=== PATIENT | female | born 1980 | race Caucasian/White ===

== ENCOUNTER → 2016-11-29 | Day surgery (SDC) | payer OTHER ==
--- NOTE | 2016-11-28 18:02 | GHP ---
[f rep st] PREOP HISTORY AND PHYSICAL DATE OF ADMISSION: 11/29/2016 SCHEDULED DATE OF SURGERY: Tomorrow 11/29/2016 at 7:30 a.m. SURGERY TO BE PERFORMED: Suction dilation curettage. PREOPERATIVE DIAGNOSIS: Missed . HISTORY OF PRESENT ILLNESS: Patient is a 36-year-old, 2, para 1-0-1, with a last menstrual period of 09/22/2016 and a presumed EDC of 06/29/2017. Patient was seen at [facility] on 11/28/2016 for her new OB visit. She had recently moved from [place]. Early in , she h ad an ultrasound at 6 weeks that demonstrated a positive pole with heart tones of 99 giv en an EDC of 07/03/2017 and patient had had no bleeding or spotting or any symptoms and an ultrasoun d repeated today at her new OB visit revealed a gestational sac with yolk sac, a very small po le with no heart tones and the diagnosis of missed was made. We carefully reviewed t reatment options and risks and benefits of all procedures, expectant management versus medical manag ement, versus suction dilation curettage. Patient would rather have definitive management with the s uction curettage and she was scheduled and consented for this. PAST OBSTETRICAL HISTORY: In May of 2014, she had a viable male who weighed 8 pounds, 9 ounces . This was a scheduled due to presumed macrosomia and enlarged abdominal circumference an d this is her 2nd . PAST GYNECOLOGICAL HISTORY: She had a normal menstrual triad with menarche at age 14. Cycles every 28 days, lasting 5 days. They had been trying to get with this baby for 6 months. She do es have a history of abnormal Paps. She had SELVIN 2-3 and was treated with a LEEP in 2009. Her Paps have been negative since. She does not have any history of any other STDs or any other gynecologica l issues. PAST MEDICAL HISTORY: None. SURGICAL HISTORY: Includes a cervical LEEP as well as the and had a tonsillectomy in 2000 . ALLERGIES: Penicillin, amoxicillin and Augmentin. They cause shortness of breath. MEDICATIONS: Include vitamins with DHA. She is Rh negative. Had RhoGAM with G1. That is all her medical history. SOCIAL HISTORY: She is . She lives with her and her son and she denies tobacco, alc ohol, and drug use since the . She and her are from [place]. They have [place] [facility] [place] 5 years. She is not currently working. She is home with her son. FAMILY HISTORY: Paternal grandfather had a myocardial infarction and clots. Cousin has asthma. Ma ternal grandfather had adult onset diabetes. Mother has GERD. Maternal aunt had breast cancer and lymphoma. Maternal grandmother had strokes, and osteoarthritis and that is all that is significant. REVIEW OF SYSTEMS: Negative today. She has mild nausea from the , no vomiting. She has n o cardiovascular, respiratory, GI, , integument or psychological problems today. PHYSICAL EXAMINATION: VITAL SIGNS: She is afebrile. Vital signs are stable. GENERAL: She is well-developed, well-nourished female, in no acute distress. She is visibly upset by the diagnosis of the miscarriage. LUNGS: Clear to auscultation bilaterally. HEART: Regular rat e and rhythm. No murmurs. ABDOMEN: Soft, nontender, nondistended. Normal bowel sounds. PELVIC: Normal external genitalia. Normal nulliparous cervix. Uterus is anteverted, anteflexed, approxima tely 6 week size. No masses. Nontender. Ultrasound results are as above, abnormally shaped gestational sac and yolk sac. No visible p ole and no heart tones. ASSESSMENT AND PLAN: 36-year-old, 2, para 1-0-1, who is 9-4/7th weeks by dates, measuring 6 weeks by size with a missed . Patient was consented for the procedure today. She understo od the risks and benefits. The risks including bleeding, infection, damage to the uterus, possible risk of damage to other organs if perforation were to occur, risk of needing additional procedures o r spontaneous expulsion of tissue at a later time, and compromise of future fertility. Patient unde rstood these risks and benefits and agreed to proceed. /[id number]/MODL
[~2016-11-29] MED LIST: DEXAMETHASONE 4 MG/ML VIAL ONE; DOXYCYCLINE INJ 100 MG in D5W 250 ML IV ONE; HEMABATE 250 MCG/1 ML AMP IM ONE; HYDROCODONE/APAP 5/325 TAB PO PRN; KETOROLAC 30 MG/1 ML SDV ONE; LIDOCAINE 2% 5 ML SDV ONE; LR 1,000 ML IV ONE; METHYLERGONOVINE MAL 0.2 MG/ML INJ ONE; MIDAZOLAM 2 MG/2 ML VIAL ONE; MISOPROSTOL 200 MCG TAB ONE; ONDANSETRON 4 MG/2 ML VIAL ONE; PROPOFOL/EMULSION 500 MG/50 ML BOTTLE IV ONE; fentaNYL 100 MCG/2 ML INJ ONE
[2016-11-29 07:36] LABS: % IMMATURE GRANULYOCYTES 0.7 % (0.0-1.1); ABSOLUTE IMMATURE GRANULOCYTES 0.04 10^3/uL (0.00-0.10); ADD DIFF? NO; ADD MORPH? NO; ADD SCAN? NO; ATYPICAL LYMPHOCYTE FLAG 10 (0-99); FRAGMENT RBC FLAG 0 (0-99); HEMATOCRIT 35.6 % (38.0-47.0); HEMOGLOBIN 12.1 g/dL (12.6-16.3); LEFT SHIFT FLG 0 (0-99); LIPEMIA HEMOLYSIS FLAG 90 (0-99); MEAN CELL HEMOGLOBIN 30.4 pg (27.9-34.1); MEAN CELL VOLUME 89.4 fL (81.5-99.8); MEAN PLATELET VOLUME 10.1 fL (8.7-11.7); PLATELET CLUMPS FLAG 0 (0-99); PLATELET COUNT 209 10^3/uL (150-400); RED BLOOD CELL COUNT 3.98 10^6/uL (4.18-5.33); RED CELL DISTRIBUTION WIDTH 12.8 % (11.5-15.2)
--- NOTE | 2016-11-29 12:25 | GOP ---
[f rep st] OPERATIVE REPORT DATE OF OPERATION: 11/29/2016 SURGEON: Lizz Shane MD ANESTHESIA: General anesthesia. ANESTHESIOLOGIST: Chance Cavanaugh MD. PREOPERATIVE DIAGNOSIS: Missed , 6 weeks by size, 9 weeks by date. POSTOPERATIVE DIAGNOSIS: Missed , 6 weeks by size, 9 weeks by date. PROCEDURE PERFORMED: Suction dilation, curettage with ultrasound guidance. FINDINGS: SPECIMENS: Will be products of conception. ESTIMATED BLOOD LOSS: For the procedure was 50 cc. INDICATIONS: Sosa is a 36-year-old, 2, para 1-0-0-1, with a last menstrual period of 09/22 and a presumed EDC of 06/29/2017. Patient was first presented to [facility] on 11/08 for her new OB visit. She had recently moved from [place]. At a clinic in [place], jean-paul babb had an ultrasound that dated her 6 weeks with a slow heart beat at 99 beats per minute. Santhosh t was approximately 3 weeks ago. Ultrasound at [facility] revealed a gestational sac with a yolk sac, very small pole, no heart tones. Diagnosis of missed was made. P blessing was given treatment options of expectant management versus medical management versus surgical management with suction D and C. Patient desired a suction D and C. she was consented for the pro cedure. She understood the risks and benefits. The risks including bleeding, infection, damage to the uterus including possible risk of perforation, damage to other organs if perforation were to occ ur, the risk of injury to other organs, risk of incomplete removal of all the tissue, need for addit ional procedures, or compromise of future fertility. She understood these risks and benefits, agree d to proceed. DESCRIPTION OF PROCEDURE: Patient was taken to the operating room where she was placed under genera l anesthesia without difficulty. She was prepped and draped in the dorsal lithotomy position. Afte r a WHO time-out was performed, an open-sided speculum was placed in the vagina, and a Mario winchester um was used to grasp the anterior lip of the cervix. The uterus sounded to 9 cm. The cervix was th en progressively dilated with Nava dilators to a #8. A #8 curved suction curette was gently advanc ed from the cervix to the fundus, and suction was applied. Tissue was removed with several passages of the suction device. The uterus was at an extremely retroflexed angle, and under palpation, I pe rformed a vaginal ultrasound and realized that the bladder was full, so I catheterized the patient. She had 250 cc of urine in her bladder. A speculum was then reapplied. The tenaculum was reapplie d. Sharp curettage was performed in a clockwise fashion until a gritty texture was palpated through out the entire uterus. Final passes of suction device revealed no further tissue and good hemostasi s. Ultrasound again performed at the bedside revealed a thin endometrial stripe, no retained produc ts of conception. Tenaculum was removed. There was no bleeding from the tenaculum sites. Uterus w as hemostatic. The patient tolerated the procedure well. Sponge, lap, needle, and instrument count s were correct x2. Patient went to the recovery room in good condition. URINE OUTPUT: 250 cc. INTRAVENOUS FLUIDS: 1500. /[id number]/MODL
== END | disposition home or self-care (01) ==
LOC: FOBOP 05:38
PROVIDERS: ATTEND Obstetrics & Gynecology
PROC: 10D17ZZ Extraction of Products of Conception, Retained, Via Natural or Artificial Opening (ICD-10-PCS; principal; 2016-11-29)
DX: O02.1 Missed abortion (principal); Z88.0 Allergy status to penicillin
CPT/HCPCS: J1100; J1885; J2210; J2250; J2405; J2704; J3010

== ENCOUNTER → 2017-04-20 | Outpatient (CLI) | payer BC | LOC: FIMAGING 10:10 | PROVIDERS: ATTEND Obstetrics & Gynecology | DX: O09.522 Supervision of elderly multigravida, second trimester (principal); O34.219 Maternal care for unspecified type scar from previous cesarean delivery; Z3A.12 12 weeks gestation of pregnancy; Z87.42 Personal history of other diseases of the female genital tract ==

== ENCOUNTER 2017-06-01 14:29 | Emergency (ER) | payer BC ==
[2017-06-01 14:42] VITALS: BP 111/86; PULSE 90; RESP 18; TEMP 98.1; O2SAT 96
[2017-06-01] MEDS ORDERED: FLUORESCEIN SODIUM 1 MG STRIP OP ONE (14:58)
[2017-06-01] MEDS ORDERED: PROPARACAINE 0.5% 15 ML OPHT DROP ONE (14:58)
--- NOTE | 2017-06-01 15:19 | EDPHY ---
H & P Time Seen by Provider: 06/01/17 15:03 HPI/ROS: CHIEF COMPLAINT: Eye redness HISTORY OF PRESENT ILLNESS: Patient had some water splashed in her eye on Monday and then thought she might have gotten poked by her toddler. She has some inflammation and irritation on the medial side of the right eye along with some redness over the past 48 hours. She does not have any decrease in visual acuity, no drainage, no fever or chills, no lid swelling or pain with extraocular motion. REVIEW OF SYSTEMS: As above PAST MEDICAL HISTORY: Sarcoid, , sciatica Social history: Saw her primary care physician on Monday and has a follow- up ophthalmology appointment on Monday. General Appearance: Alert, no distress. Visual acuity: noted from nursing notes. Lids and Lashes: No edema, no stye, no erythema. Conjunctivae: Not injected, no exudate. Sclera: medial right side subconjunctival hemorrhage with no scleral injection. 1mm slight raised area medially, slightly yellow in color. Pupils: Equal and round, normally reactive. Corneas: Right examined with fluoroscein, no uptake seen with slitlamp.Negative Trent test with fluoroscein. No foreign body on surface of cornea. Anterior chamber: normal, no hyphema or hypopyon. External: No proptosis, no periorbital swelling or redness or tenderness. Emergency Department course/MDM: Patient has probable very mild right subconjunctival hemorrhage without evidence of a threat to eyesight or acute infection. Symptomatic treatment and ophthalmology follow-up as scheduled on Monday. Warned to return immediately for discharge or increasing pain or any decrease in vision. Smoking Status: Never smoked Constitutional: Initial Vital Signs Temperature (C) 36.7 C 06/01/17 14:39 Heart Rate 90 06/01/17 14:39 Respiratory Rate 18 06/01/17 14:39 Blood Pressure 111/86 H 06/01/17 14:39 O2 Sat (%) 96 06/01/17 14:39 O2 Delivery Mode Room Air Allergies/Adverse Reactions: amoxicillin Allergy (Verified 06/01/17 14:38) Penicillins Allergy (Verified 06/01/17 14:38) Home Medications: Medication Instructions Recorded 06/01/17 MDM/Departure - Depart Disposition: Home, Routine, Self-Care Clinical Impression: Subconjunctival hemorrhage of right eye Condition: Good Instructions: Subconjunctival Hemorrhage (ED) Referrals: Nallely Healy MD [Medical Doctor] - As per Instructions
== END 2017-06-01 15:22 | disposition home or self-care (01) ==
DX: O99.89 Other specified diseases and conditions complicating pregnancy, childbirth and the puerperium (principal); H11.31 Conjunctival hemorrhage, right eye; Z3A.18 18 weeks gestation of pregnancy

== ENCOUNTER → 2017-06-08 | Outpatient (CLI) | payer BC | LOC: FIMAGING 09:23 | PROVIDERS: ATTEND Obstetrics & Gynecology | DX: O09.512 Supervision of elderly primigravida, second trimester (principal); O34.219 Maternal care for unspecified type scar from previous cesarean delivery; Z3A.19 19 weeks gestation of pregnancy ==

== ENCOUNTER 2017-10-27 05:03 | Inpatient (IN) | payer BC ==
--- NOTE | 2017-10-16 10:20 | GHP ---
[f rep st] PREOP HISTORY AND PHYSICAL DATE OF ADMISSION: 10/27/2017 DATE OF SURGERY: 10/27/2017. PROCEDURE TO BE PERFORMED: Repeat lower transverse section at 39 weeks gestation. HISTORY OF PRESENT ILLNESS: The patient is a 37-year-old 3, para 1-0-1-1, with a last menstr ual period of 01/26/2017, and an EDC of 11/04/2017, confirmed by a 6 and 8-week ultrasound. She has had good care at [facility] since registration at 8 weeks' gestation and has had a relatively uncomplicated course. She is advanced maternal age. She has had normal verify, normal AFP and normal ultrasounds in this . She is Rh negative, status post RhoGAM. She h as a history of with G1 secondary to suspected macrosomia. She was not offered a trial of labor with that . She delivered in [place], that baby weighed 8 pounds 9 ounces. This b emily is also suspected to be macrosomic. The most recent ultrasound performed at 32 weeks gestation b emily was 96th percentile greater than 98th percentile for by parietal diameter and head circumference, 91st percentile for abdominal circumference and she is GBS positive. The patient has had delivery o ptions discussed. Repeat section versus attempted vaginal after section june use of concerns about this baby's size and concerns about risks of . Patient declines a trial of labor and is more comfortable with a repeat section. PAST OBSTETRICAL HISTORY: In May 2014 she delivered a viable male, 8 pounds 9 ounces by primary elective . In November of 2016 she had a D and C secondary to missed at 9 weeks and th is is her 3rd . PAST GYNECOLOGICAL HISTORY: She has a normal menstrual triad. Menarche at age 14. Interval every 2 8 days. Length of 5 days and regular. Last menstrual period of 01/26/2017, and this was a planned after her miscarriage. She has a history of abnormal Paps with a LEEP performed in 2005 secondary to SELVIN 2. She has had negative Pap since and a negative Pap in this in 2016. No other history of any STDs. They did need to use a vacuum to get the baby out during the . PAST SURGICAL HISTORY: 2013, D and C in 2017 and tonsillectomy in 2000. She does have a history of sarcoidosis at age 23. It affected her eyes and her neck, treated with an tibiotics and in this she also had an ophthalmologic rash that inflammation and she had an episode of elevated C-reactive protein and elevated creatinine. PIH labs were normal. Re peat labs were improved and the rash improved spontaneously with drops for medicine. She will be fol lowed by ordinary seaman . ALLERGIES: She is allergic to penicillin, amoxicillin, Augmentin, they all cause shortness of breath . MEDICATIONS: Include vitaPearl vitamin. She was on Prometrium in 1st trimester. LABORATORY DATA: She is O negative, antibody negative. RPR nonreactive. Rubella immune. Hepatitis negative. HIV negative. Verify normal. Standard panel normal. AFP normal. Gonorrhea and chlamyd ia negative. 1-hour GTT 94. GBS positive. SOCIAL HISTORY: She is . She lives with her , Huber, and her son, Huber. She is a [id number] mom. They are from [place]. They have moved here recently. She denies tobacco, alco hol, and drug use in this . FAMILY HISTORY: Significant for paternal grandfather with myocardial infarction, chronic hypertensio n. Mother with acid reflux. Cousin and maternal grandfather with adult onset diabetes. Maternal au nt with double mastectomy for breast cancer. Mom and maternal grandmother with osteoarthritis and ma ternal grandmother had a stroke. REVIEW OF SYSTEMS: Negative except for symptoms normal as above. OBJECTIVE: VITAL SIGNS: Today she is afebrile, blood pressure is 132/64, weight is 198, which is a 26 pound weight gain in this . GENERAL: She is a well-developed, well-nourished gravid whi te female in no acute distress. LUNGS: Clear to auscultation bilaterally. HEART: Regular rate and rhythm, no murmur. ABDOMEN: Gravid. Fundal height is 39. heart tones 158. PELVIS: Exam w as closed and 50% last week. ASSESSMENT AND PLAN: 37-year-old 3, para 1-0-1-1, who will be 39 and 1/7 weeks gestation on October 27, who desires a repeat lower transverse section. Patient was consented for the pr ocedure. She understood the risks and benefits, the risks including bleeding, infection, damage to i nternal organs, uterus, tubes, ovaries, bowel, bladder, nerves, blood vessels, ureters, risk of injury, risk of hemorrhage requiring blood transfusion, hysterectomy, or . She understood thes e risks and benefits and agreed to proceed. /[id number]/MODL
[2017-10-27] MEDS ORDERED: CITRIC ACID/SODIUM CITRATE 30 ML UDCUP PO ONE (05:13)
[2017-10-27] MEDS ORDERED: LR 500 ML IV ONE (05:13)
[2017-10-27] MEDS ORDERED: CLINDAMYCIN 900 MG/DEXTROSE 50 ML IV ONE (05:13)
[2017-10-27 06:21] LABS: PLATELET COUNT 206 10^3/uL (150-400)
[2017-10-27] MEDS ORDERED: OXYTOCIN 10 UNIT/ML VIAL ONE (06:55)
[2017-10-27] MEDS ORDERED: MISOPROSTOL 200 MCG TAB ONE (06:55)
[2017-10-27] MEDS ORDERED: fentaNYL 100 MCG/2 ML INJ ONE (07:03)
[2017-10-27] MEDS ORDERED: morphINE PF 5 MG/10 ML INJ ONE (07:04)
[2017-10-27] MEDS: LR 1,000 ML IV SCH ×2 (07:06→16:59)
[2017-10-27] MEDS ORDERED: OXYTOCIN 100 UNITS/10 ML VIAL ONE (07:09)
[2017-10-27] MEDS ORDERED: BUPIVACAINE/DEXTROSE 7.5MG/ML 2 ML SPINAL AMP SP ONE (07:09)
[2017-10-27] MEDS ORDERED: ONDANSETRON 4 MG/2 ML VIAL ONE (07:09)
[2017-10-27] MEDS ORDERED: PHENYLEPHRINE 10 MG/ML SDV ONE (07:10)
--- NOTE | 2017-10-27 07:23 | PDANEPAE ---
ANE History of Present Illness tiup for repeat cs ANE Past Medical History Past Medical History: previous cs, mild anemia - Pulmonary History Hx Oxygen in Use at Home: No Hx Sleep Apnea: No - Endocrine History Hx Diabetes: No - Chronic Pain History Chronic Pain: No ANE Review of Systems Review of Systems: - Systems Respiratory: Reports: cough, other (recent uri) ANE Patient History - Allergies Allergies/Adverse Reactions: amoxicillin Allergy (Verified 06/01/17 14:38) Penicillins Allergy (Verified 06/01/17 14:38) - Home Medications Home Medications: 1 tab PO DAILY 06/01/17 [Last Taken 10/26/17 22:00] Ferrous Sulfate 1 tab PO DAILY 10/27/17 [Last Taken 10/26/17 22:00] - NPO status NPO Status: no food or drink >8 hours NPO Since - Liquids (Date): 10/26/17 NPO Since - Liquids (Time): 22:30 NPO Since - Solids (Date): 10/26/17 NPO Since - Solids (Time): 22:30 - Anes Hx Anes Hx: no prior problems (previous cs, d&c, t&a) - Smoking Hx Smoking Status: Never smoked ANE Labs/Vital Signs - Labs Result Diagrams: 10/27/17 05:58 - Vital Signs Blood Pressure: 110/71 Heart Rate: 99 Respiratory Rate: 20 O2 Sat (%): 95 Height: 166.37 cm Weight: 90.265 kg ANE Physical Exam - Airway Neck exam: FROM Mallampati Score: Class 2 Mouth exam: normal dental/mouth exam - Pulmonary Pulmonary: no respiratory distress - Cardiovascular Cardiovascular: regular rate and rhythym - ASA Status ASA Status: II ANE Anesthesia Plan Anesthesia Plan: spinal
[2017-10-27] MEDS ORDERED: PROPOFOL/EMULSION 500 MG/50 ML BOTTLE IV ONE (08:28)
[2017-10-27] MEDS ORDERED: METHYLERGONOVINE MAL 0.2 MG/ML INJ ONE (08:38)
[2017-10-27] MEDS ORDERED: HYDROmorphONE/DILAUDID 2 MG/ML INJ ONE (09:26)
[2017-10-27] MEDS ORDERED: DOCUSATE SODIUM 100 MG CAP PO PRN (09:28)
[2017-10-27] MEDS ORDERED: PROMETHAZINE HCL 25 MG/ML INJ IVP PRN (09:28)
[2017-10-27] MEDS ORDERED: OXYCODONE/APAP 5/325 TAB PO PRN ×2 (09:28→09:47)
[2017-10-27] MEDS ORDERED: SIMETHICONE 80 MG TAB CHEW PO PRN (09:28)
[2017-10-27] MEDS ORDERED: BISACODYL 10 MG SUPP PR PRN (09:30)
[2017-10-27] MEDS ORDERED: LACTULOSE 20 GM/30 ML UDCUP PO PRN (09:30)
[2017-10-27] MEDS ORDERED: MAGNESIUM HYDROXIDE 30 ML UDCUP PO PRN (09:30)
[2017-10-27] MEDS ORDERED: POLYETHYLENE GLYCOL 3350 17 GM PKT PO PRN (09:30)
[2017-10-27] MEDS ORDERED: HYDROmorphONE/DILAUDID 6 MG/30 ML PCA IV PRN (09:31)
[2017-10-27] MEDS ORDERED: NALOXONE HCL 0.4 MG/ML INJ IVP PRN ×2 (09:31→09:47)
--- NOTE | 2017-10-27 09:32 | PDHPUP ---
History & Physical Update H&P update statement: This history and physical update is based on an assessment of the patient which was completed after admission or registration (within 24 hours), but prior to the surgery/procedure. H&P update: H&P reviewed & patient examined
[2017-10-27] MEDS ORDERED: MIDAZOLAM 2 MG/2 ML VIAL ONE (09:35)
--- NOTE | 2017-10-27 09:35 | OBDEL ---
Info Type: Repeat Presentation at Delivery: Vertex GBS+: Yes Antibiotic Used for + GBS: Clindamycin Intrapartum Medications: Generic Name Dose Route Start Last Admin Trade Name Freq PRN Reason Stop Dose Admin Lactated Ringer's 1,000 mls @ 125 mls/hr 10/27/17 05:13 10/27/17 07:06 Lr IV 10/28/17 05:12 1,000 mls CONT JEN Administration Discontinued Medications Generic Name Dose Route Start Last Admin Trade Name Freq PRN Reason Stop Dose Admin Clindamycin Phosphate/Dextrose 50 mls @ 100 mls/hr 10/27/17 05:13 10/27/17 07 :06 Cleocin 900 Mg (Premix) IV 10/27/17 05:42 50 mls ONCALL ONE Administration Protocol - Care Provider Apartment Rental Clerk/SENIOR SQL SERVER DBA: Janki Degroot Indications for Delivery: Elective, Suspected Macrosomia Operative Report - Delivery Pre-op Diagnoses: IUP @ 39 weeks, h/o c section desires repeat Post-op Diagnoses: same History of Prior Section: Yes Number of Prior Sections: 1 Nulliparous Prior to Delivery: No Indications for Prior Section: Arrest of Dilation, Other (Specify) ( macrosomia) Indications for Current Section: Elective/Repeat, Other (Specify) ( macrosomia) Procedure: Scheduled Surgeon: Lizz Shane Cotton Seed Culler: Zulma Mathis Anesthesiologist: Mario Baez Complications: None Findings: normal uterus, tubes and ovaries IV Fluid (ml): 2,100 EBL: 800 Britton Data JOSHUA: 11/02/17 Gestational Age: 39 week(s) and 1 day(s) Onofre Delivery Date: 10/27/17 Delivery Time: 08:32 Sex of : Female Britton Weight (gm): 4365.827 g Score (1 Min): 8 Score (5 Min): 9 ICD10 Worksheet Patient Problems: Problems Problem Status Onset S/P repeat low transverse Acute - ICD10 Problem Qualifiers (1) S/P repeat low transverse
[2017-10-27] MEDS: KETOROLAC 30 MG/1 ML SDV IVP PRN ×3 (09:45→22:33)
[2017-10-27] MEDS ORDERED: ONDANSETRON 4 MG/2 ML VIAL IVP PRN (09:47)
[2017-10-27] MEDS ORDERED: fentaNYL 100 MCG/2 ML INJ IVP PRN (09:47)
[2017-10-27] MEDS ORDERED: HYDROmorphONE/DILAUDID 1 MG/ML INJ IVP PRN (09:47)
[2017-10-27] MEDS ORDERED: MEPERIDINE 25 MG/ML SYR IVP PRN (09:47)
[2017-10-27] MEDS ORDERED: PHENYLEPHRINE HCL 100 MCG/ML SYR IVP PRN (09:47)
[2017-10-27] MEDS ORDERED: HYDROCODONE/APAP 5/325 TAB PO PRN (09:47)
--- NOTE | 2017-10-27 09:53 | POSTANESTH ---
Post Anesthetic Evaluation Cardiovascular Status: Normal, Stable Respiratory Status: Normal, Stable Level of Consciousness/Mental Status: Can Participate in Eval Pain Control: Adequate, Prn Tx Ordered Nausea/Vomiting Control: Adequate, Prn Tx Ordered Complications Possibly Related to Anesthesia: None Noted (Needed additional pain meds in PACU, loading dose of dilaudid given while waiting for SWITCH ADJUSTER. Some improvement with dilaudid. Remarkable improvement with a small dose of midazolam. Suspect a strong anxiety component to her pain control. Doing well now. States she is comfortable. Holding baby and smiling.)
[2017-10-27] MEDS ORDERED: ACETAMINOPHEN 650 MG/20.3 ML UDCUP PO PRN (10:15)
--- NOTE | 2017-10-27 10:25 | GOP ---
[f rep st] OPERATIVE REPORT DATE OF OPERATION: 10/27/2017 SURGEON: Lizz Shane MD POSTAL SERVICE WINDOW CLERK: Dr. Zulma Mathis ANESTHESIA: Spinal anesthesia with sedation. ANESTHESIOLOGIST: Dr. Baez PREOPERATIVE DIAGNOSIS: Intrauterine at 39 weeks gestation with a history of a lower trans verse section secondary to suspected macrosomia and desires repeat section, and mac rosomia of this baby. POSTOPERATIVE DIAGNOSIS: Intrauterine at 39 weeks gestation with a history of a lower mendosa sverse section secondary to suspected macrosomia and desires repeat section, and ma crosomia of this baby. PROCEDURE PERFORMED: Repeat lower transverse section. FINDINGS: Viable female, Apgars of 8 and 9, weight of 9 pounds 10 ounces. ESTIMATED BLOOD LOSS: 800 cc. INDICATIONS: The patient is a 37-year-old 3, para 1-0-1-1, with a last menstrual period of 0 01/26/2017, and EDC of 11/03/2017, confirmed by a first-trimester ultrasound. She has had good prenat al care at [facility] since registration at 8 weeks' gestation, and had an uncomplicated pr enatal course. She had a history of section secondary to suspected macrosomia with G1. She was delivered in [place]. That baby was 8 pounds 9 ounces. This baby is also suspected to be ma crosomic. Most recent ultrasound at 32 weeks, the baby was 96th percentile, had a greater than 90th percentile head, and the patient declined a trial of labor, desired repeat section. She was consented for the procedure and scheduled. She understood the risks and benefits, the risks includi ng bleeding, infection, damage to internal organs, uterus, tubes, ovaries, bowel, bladder, nerves, bl ood vessels, ureters; risk of injury; risk of hemorrhage requiring blood transfusion, hysterect herb, or . She understood these risks and benefits and agreed to proceed. DESCRIPTION OF PROCEDURE: The patient was taken to the operating room, where she was given a spinal anesthesia without difficulty. She was prepped and draped in the dorsal supine position with a leftw yeyo tilt, and a Carmona catheter was placed in her bladder. After adequate anesthesia was assured, a t ransverse skin incision was made in the prior scar, and the incision was carried down to th e underlying layer of fascia with the Bovie. Fascia was incised in midline. Fascial incision was ex tended laterally with Wells scissors. Superior aspect of the fascial incision was grasped with Stanley clamps, elevated, and the rectus muscles were dissected off sharply. Inferior aspect of the fascial incision was grasped with Stanley clamps, elevated, and the rectus muscles were dissected off sharply . Rectus muscles were in the midline. Peritoneum was entered bluntly. Incision was exten ded laterally, and bladder blade was inserted. There was a window noted in the uterine wall. We cou ld visualize parts and vernix in the amniotic sac. There was a very thin vesicouterine periton eum layer that was entered and the bladder flap was created. The uterus was incised with a knife. T here was clear amniotic fluid upon entry of the uterine cavity. The incision was extended laterally with the Wlels scissors. The was delivered atraumatically. We waited 1 minute for cord clampi ng and then the cord was clamped and cut. The was handed off to the waiting nurse pr actitioner. Cord bloods were sent. The placenta was removed manually. The uterus was exteriorized, cleared of all clots and debris. The uterine incision was repaired with 0 Vicryl in a running paul d fashion. Second imbricating layer of suture was performed with 0 Vicryl and good hemostasis was ob tained. The uterus was returned to the abdomen. Gutters were cleared of all clots and debris. Rein spection of the uterine incision again assured hemostasis. The rectus muscles were approximated with 2-0 Vicryl in inverted mattress fashion. The fascia was closed with #1 Vicryl, subcutaneous layer w as closed with 2-0 Vicryl, and skin was closed with 4-0 Vicryl. The patient tolerated the procedure well. Sponge, lap, needle, and instrument counts were correct x3. The patient went to the recovery room in good condition. FLUIDS REPLACED: 2100 cc. URINE OUTPUT: 100 cc. /[id number]/MODL
--- NOTE | 2017-10-27 18:34 | OBPP ---
Progress Note Assessment/Plan: Assessment: 37 y/o POD #0 s/p Rpt LTCS doing well. Plan: CLIENT RELATIONSHIP MANAGER and Toradol tonight, transition to po in am. Pt is dosed for liquid meds per preference. Routine POC. 10/27/17 18:34 Subjective/ Course: 10/27/17 18:28 Pt is doing well today with good pain control wit CLIENT RELATIONSHIP MANAGER and Toradol. She is tolerating reg diet and denies nausea. Breast feeding is going well and baby is doing well. Objective: 10/27/17 05:58 Patient ABO/Rh O NEGATIVE 10/27/17 12:15 Temp Pulse Resp BP Pulse Ox 37.1 C 89 16 96/60 L 93 10/27/17 16:00 10/27/17 16:00 10/27/17 16:00 10/27/17 16:00 10/27/17 16:00 Uterine Position/Fundal Height: Umbilicus -2 Uterine Tone: Firm Physical Exam - Physical Exam General Appearance: alert, no apparent distress Neck: non-tender, full range of motion, supple Respiratory: chest non-tender, lungs clear, normal breath sounds Cardiac/Chest: regular rate, rhythm Abdomen: dressing (c/d/i) Extremities: swelling (tr)
[2017-10-27] MEDS ORDERED: SENNOSIDES/DOCUSATE SODIUM TAB PO SCH (21:00)
[2017-10-27] MEDS: SENNOSIDES 17.6 MG/10 ML UDL - IF LIQUID ORDERED PO SCH (22:33)
[2017-10-28] MEDS: KETOROLAC 30 MG/1 ML SDV IVP PRN (04:15)
[2017-10-28] MEDS: oxyCODONE ORAL SOLUTION 10 MG/0.5 ML UDSYR PO PRN ×5 (06:30→22:28)
--- NOTE | 2017-10-28 10:05 | OBPP ---
Progress Note Assessment/Plan: Assessment: 37 y/o POD #1 s/p Rpt LTCS doing well. Plan: Routine PP care Advance diet as tolerated Activity encouraged as tolerated 10/28/17 10:06 Subjective/ Course: 10/27/17 18:28 Pt is doing well today with good pain control wit NURSE EMERGENCY ROOM and Toradol. She is tolerating reg diet and denies nausea. Breast feeding is going well and baby is doing well. 10/28/17 10:07 Doing well today. Pain well controlled with oral pain medication. Lochia is light. Tolerating regular diet, montero just d/c'd. Breast feeding going well. Objective: 10/28/17 06:35 Patient ABO/Rh O NEGATIVE 10/27/17 12:15 Temp Pulse Resp BP Pulse Ox 36.8 C 91 16 93/57 L 97 10/28/17 10:02 10/28/17 10:02 10/28/17 10:02 10/28/17 10:02 10/28/17 10:02 Uterine Position/Fundal Height: At Umbilicus Uterine Tone: Firm Physical Exam - Physical Exam EENT: PERRL/EOMI Neck: non-tender, supple Respiratory: lungs clear, normal breath sounds Cardiac/Chest: normal peripheral pulses, regular rate, rhythm Abdomen: hypoactive bowel sounds (X 4 quads), soft, dressing (dry and intact) Extremities: normal range of motion, normal inspection Skin: normal color, warm/dry Neuro/Psych: alert, normal mood/affect, oriented x 3
[2017-10-28] MEDS ORDERED: FERROUS SULFATE 325 MG TAB PO SCH (10:15)
[2017-10-28] MEDS: SENNOSIDES 17.6 MG/10 ML UDL - IF LIQUID ORDERED PO SCH ×2 (10:53→22:27)
[2017-10-28] MEDS: IBUPROFEN SUSP 100 MG/5 ML UDCUP PO PRN ×3 (10:58→22:30)
[2017-10-29] MEDS: oxyCODONE ORAL SOLUTION 10 MG/0.5 ML UDSYR PO PRN ×6 (02:21→23:45)
[2017-10-29] MEDS: IBUPROFEN SUSP 100 MG/5 ML UDCUP PO PRN ×4 (04:26→23:46)
[2017-10-29] MEDS: SENNOSIDES 17.6 MG/10 ML UDL - IF LIQUID ORDERED PO SCH ×2 (06:47→20:04)
--- NOTE | 2017-10-29 11:56 | OBPP ---
Progress Note Assessment/Plan: Assessment: 37 y/o POD #2 s/p Rpt LTCS doing well. Plan: Oral liquid Ibuprofen and oxycodone now and will add Tylenol. Ambulate with assistance and patient may shower. Bowel protocol to prevent constipation which was her worst concern last c section. Routine POC and support. 10/27/17 18:34 10/29/17 11:56 Subjective/ Course: 10/27/17 18:28 Pt is doing well today with good pain control wit SILVER WRAPPER and Toradol. She is tolerating reg diet and denies nausea. Breast feeding is going well and baby is doing well. 10/28/17 10:07 Doing well today. Pain well controlled with oral pain medication. Lochia is light. Tolerating regular diet, montero just d/c'd. Breast feeding going well. 10/29/17 11:51 Pt is doing well. She is still struggling with incisional pain with the liquid Oxycodone and Ibuprofen. She says it helps, but doesn't fully resolve the burning pain especially on her left side. She is ambulating in the hallway and has an abdominal binder. She is voiding without difficulty and has min lochia. Breast feeding is going well and she is nursing and pumping to get her milk in as soon as possible. Objective: 10/28/17 06:35 Patient ABO/Rh O NEGATIVE 10/27/17 12:15 Temp Pulse Resp BP Pulse Ox 36.3 C 81 16 99/59 L 96 10/29/17 09:15 10/29/17 09:15 10/29/17 09:15 10/29/17 09:15 10/29/17 09:15 Uterine Position/Fundal Height: Umbilicus -2 Uterine Tone: Firm Physical Exam - Physical Exam General Appearance: WD/WN, alert, no apparent distress Neck: non-tender, full range of motion, supple Respiratory: chest non-tender, lungs clear, normal breath sounds Cardiac/Chest: regular rate, rhythm Abdomen: normal bowel sounds, incision (c/d/i) Extremities: swelling (no), Felix's sign (neg)
[2017-10-29] MEDS ORDERED: FERRO-SEQUELS 65 MG TAB.ER PO SCH (14:00)
[2017-10-29] MEDS: FERROUS SULFATE 300 MG/5 ML UD CUP PO SCH (20:04)
[2017-10-29] MEDS ORDERED: IRON POLYSAC/IRON HEME 28 MG TAB PO SCH (21:00)
[2017-10-30] MEDS: oxyCODONE ORAL SOLUTION 10 MG/0.5 ML UDSYR PO PRN ×3 (03:53→13:05)
[2017-10-30] MEDS: IBUPROFEN SUSP 100 MG/5 ML UDCUP PO PRN ×2 (06:05→12:04)
[2017-10-30 08:58] VITALS: BP 105/61
[2017-10-30] MEDS: FERROUS SULFATE 300 MG/5 ML UD CUP PO SCH (08:59)
[2017-10-30] MEDS: SENNOSIDES 17.6 MG/10 ML UDL - IF LIQUID ORDERED PO SCH (08:59)
--- NOTE | 2017-10-30 10:23 | OBPP ---
Progress Note Assessment/Plan: Assessment: POD#3 s/p Repeat C/S - doing well on liquid pain medication. Ready for - dc - see summary. DC instructions reviewed - including ssx pp depression, no driving x 2 wk, no heavy lifting x 6 wk. Plan: DC home - see summary. Renée Langford MD, FACOG 10/30/17 10:22 Subjective/ Course: 10/27/17 18:28 Pt is doing well today with good pain control wit DIRECTOR CLINICAL DATA and Toradol. She is tolerating reg diet and denies nausea. Breast feeding is going well and baby is doing well. 10/28/17 10:07 Doing well today. Pain well controlled with oral pain medication. Lochia is light. Tolerating regular diet, montero just d/c'd. Breast feeding going well. 10/29/17 11:51 Pt is doing well. She is still struggling with incisional pain with the liquid Oxycodone and Ibuprofen. She says it helps, but doesn't fully resolve the burning pain especially on her left side. She is ambulating in the hallway and has an abdominal binder. She is voiding without difficulty and has min lochia. Breast feeding is going well and she is nursing and pumping to get her milk in as soon as possible. 10/30/17 10:20 Pt doing well. Ready to go home today with Rxs for pain control. Has had 3 BMs , is voiding fine. going well. Objective: 10/28/17 06:35 Patient ABO/Rh O NEGATIVE 10/27/17 12:15 Temp Pulse Resp BP Pulse Ox 36.6 C 87 18 105/61 95 10/30/17 08:00 10/30/17 08:00 10/30/17 08:00 10/30/17 08:00 10/30/17 08:00 gen- pleasant, NAD CV - RRR chest - CTAB abd - +BS, fundus firm u-2, NT inc - C/D/I with steristrips ext - calves NT, tr edema Uterine Position/Fundal Height: Umbilicus -2 Uterine Tone: Firm
--- NOTE | 2017-10-30 10:48 | OBGCSDC ---
General Delivery Information - General Info : 3 Para: 2 Abortions: 1 Type: Repeat L&D Analgesia/Anesthesia Type: Spinal Admission Date: 10/27/17 Labs: Patient ABO/Rh O NEGATIVE 10/27/17 12:15 Hct 29.7 % (38.0-47.0) L 10/28/17 06:35 - Hospital Course : 10/27/17 18:28 Pt is doing well today with good pain control wit SORTER OPERATOR and Toradol. She is tolerating reg diet and denies nausea. Breast feeding is going well and baby is doing well. 10/28/17 10:07 Doing well today. Pain well controlled with oral pain medication. Lochia is light. Tolerating regular diet, montero just d/c'd. Breast feeding going well. 10/29/17 11:51 Pt is doing well. She is still struggling with incisional pain with the liquid Oxycodone and Ibuprofen. She says it helps, but doesn't fully resolve the burning pain especially on her left side. She is ambulating in the hallway and has an abdominal binder. She is voiding without difficulty and has min lochia. Breast feeding is going well and she is nursing and pumping to get her milk in as soon as possible. 10/30/17 10:20 Pt doing well. Ready to go home today with Rxs for pain control. Has had 3 BMs , is voiding fine. going well. - Delivery Providers Surgeon: Lizz Shane [employer] Counselor: Zulma Mathis Anesthesiologist: Mario Baez - Delivery Number of Prior Sections: 1 Indications for Current Section: Elective/Repeat, Other (Specify) ( macrosomia) Surgical Procedures: Scheduled Intra-op Complications: None EBL: 800 [place] Data JOSHUA: 11[birth year]02[birth year]17 Gestational Age: 39 week(s) and 4 day(s) Onofre Delivery Date: 10/27/17 Delivery Time: 08:32 Sex of Infant: Female [place] Weight (gm): 4365.827 g Score (1 Min): 8 Score (5 Min): 9 Discharge Information - Discharge Information Prescriptions: Acetaminophen [Tylenol 650/20.3ML Oral Liq (*)] 500 mg PO Q4 PRN #40 udcup MDD 3000 PRN Reason: Pain, Mild/Fever, Can Take Po Ferrous Sulfate 220 mg PO BID #90 elixir Ibuprofen 600 mg PO Q6 #90 oral.susp oxyCODONE ORAL SOLUTION [Roxicodone Intensol] 5 - 10 mg PO Q4 PRN #600 bottle MDD 60 PRN Reason: Pain, Moderate Polyethylene Glycol 3350 [Miralax 17 gm (*)] 17 gm PO DAILY PRN #20 pkt PRN Reason: Constipation, patient prefers Sennosides [Senna] 8.8 mg PO BID PRN #30 ml PRN Reason: Constipation Condition: Good Instruction/Follow Up: Two Weeks (incision check), Four Weeks ([facility] appointment at [facility]), Six Weeks ([address] Shane)
== END 2017-10-30 14:00 | disposition home or self-care (01) | DRG 766 ==
LOC: FLD 05:03 → FOB 15:19
PROVIDERS: ADMIT Obstetrics & Gynecology; ATTEND Hospitalist
PROC: 3E03329 Introduction of Other Anti-infective into Peripheral Vein, Percutaneous Approach (ICD-10-PCS; principal; 2017-10-27)
PROC: 10D00Z1 Extraction of Products of Conception, Low, Open Approach (ICD-10-PCS; principal; 2017-10-27)
DX: O34.211 Maternal care for low transverse scar from previous cesarean delivery (principal); O36.63X0 Maternal care for excessive fetal growth, third trimester, not applicable or unspecified; O99.824 Streptococcus B carrier state complicating childbirth; Z87.09 Personal history of other diseases of the respiratory system; Z87.410 Personal history of cervical dysplasia; Z88.0 Allergy status to penicillin; Z3A.39 39 weeks gestation of pregnancy; Z37.0 Single live birth
CPT/HCPCS: J1170; J1885; J2210; J2250; J2274; J2370; J2405; J2590; J2704; J3010

== ENCOUNTER → 2017-11-14 | Outpatient (CLI) | payer BC | LOC: FLACT 09:45 | PROVIDERS: ATTEND Obstetrics & Gynecology | DX: Z39.1 Encounter for care and examination of lactating mother (principal) | CPT/HCPCS: G0463 ==

== ENCOUNTER → 2018-04-28 | Outpatient (CLI) | payer BC | LOC: FLAB 09:23 → EDSTATUS 09:23 → FIMAGING 09:23 | PROVIDERS: ATTEND Internal Medicine Rheumatology | DX: Z03.89 Encounter for observation for other suspected diseases and conditions ruled out (principal); Z86.2 Personal history of diseases of the blood and blood-forming organs and certain disorders involving the immune mechanism ==